=== PATIENT | male | born 1960 | race Caucasian/White ===

== ENCOUNTER 2016-11-27 09:56 | Emergency (ER) | payer BC, OTHER ==
[~2016-11-27] VITALS: Wt 88.5 kg
[~2016-11-27 09:56] MED LIST: ASPI-664 PO; ATOR80TA75 PO; BENA40TA41 PO; CARV6.2579 PO; LORA0.5T PO; TICA90TA PO; ZOLP10TA5 PO
[2016-11-27] MEDS ORDERED: CARV12.579 PO (10:38)
[2016-11-27] MEDS ORDERED: CARV6.2579 PO (10:38)
--- NOTE | 2016-11-27 10:49 | RADRPT ---
PROCEDURE: XR Chest. CLINICAL INDICATION: Chest pain TECHNIQUE: Single AP portable chest COMPARISON: 05/23/2016 FINDINGS: The cardiomediastinal silhouette is within normal limits..The lungs are clear though pleural effusio n or focal consolidation. No pneumothorax. The osseous structures and soft tissues are unremarkable. IMPRESSION: 1. No evidence for active cardiopulmonary disease. RPTAT:AAJJ Quang Wang Physician Date Time Electronically viewed and signed by Quang Wang Physician on 11/27/2016 10:49 MIRIAM/
[2016-11-27 10:57] LABS: BASOPHILS % 0.3 % (0.0-2.0); EOSINOPHILS # 0.1 10^3/ul (0.0-0.5); HEMATOCRIT 40.5 % (42.0-52.0); HEMOGLOBIN 13.9 g/dl (14.0-18.0); LYMPHOCYTES # 1.3 10^3/ul (0.8-2.9); LYMPHOCYTES % 22.2 % (15.0-51.0); MEAN CORPUSCULAR HEMOGLOBIN 30.5 pg (29.0-33.0); MEAN CORPUSCULAR HGB CONC 34.3 g/dl (32.0-37.0); MEAN PLATELET VOLUME 8.6 fl (7.4-10.4); MONOCYTE # 0.6 10^3/ul (0.3-0.9); MONOCYTES % 9.9 % (0.0-11.0); NEUTROPHIL # 3.8 10^3/ul (1.6-7.5); NEUTROPHILS % 66.6 % (39.0-77.0); PLATELET COUNT 237 10^3/UL (140-440); RED BLOOD COUNT 4.55 10^6/ul (4.70-6.10); RED CELL DISTRIBUTION WIDTH 13.5 % (11.5-14.5); UNCORRECTED WBC 5.8 10^3/ul (4.8-10.8); WHITE BLOOD COUNT 5.8 10^3/ul (4.8-10.8)
[2016-11-27] MEDS ORDERED: NITROGLYCERIN (SL) 0.4 MG TAB SL PRN (11:00)
[2016-11-27 11:04] LABS: CONDITION 1
[2016-11-27 11:15] LABS: ALBUMIN 4.1 g/dl (3.3-4.9); CHLORIDE 101 mmol/L (97-110); SODIUM 141 mmol/L (135-144)
[2016-11-27 11:16] LABS: POTASSIUM 4.7 mmol/L (3.5-5.1)
[2016-11-27 11:18] LABS: ALBUMIN/GLOBULIN RATIO 1.41; ALKALINE PHOSPHATASE 49 IU/L (42-121); ANION GAP 17 (8-16); ASPARTATE AMINO TRANSFERASE 35 IU/L (15-46); BILIRUBIN,INDIRECT 0.5 mg/dl (0-1.1); BILIRUBIN,TOTAL 0.5 mg/dl (0.2-1.3); BLOOD UREA NITROGEN 18 mg/dl (7-20); CARBON DIOXIDE 28 mmol/L (21-31); CREATININE 0.85 mg/dl (0.61-1.24); GLUCOSE 142 mg/dl (70-220)
[2016-11-27 11:19] LABS: ALANINE AMINOTRANSFERASE 65 IU/L (13-69); CALCIUM 9.4 mg/dl (8.4-10.2)
[2016-11-27 11:30] LABS: TROPONIN-I < 0.012 ng/ml (0.00-0.12)
[2016-11-27 11:33] LABS: INR 0.92; PROTIME 12.4 Sec (12.2-14.2)
[2016-11-27 11:42] LABS: PARTIAL THROMBOPLASTIN TIME 30.2 Sec (25.0-35.0)
--- NOTE | 2016-11-27 13:39 | ERD ---
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 No shortness of breath, nausea, vomiting or diaphoresis. Took 3 sublingual nitroglycerin with minimal relief. No abdominal pain or back pain. No headache or neck pain. No URI symptoms or cough. Denies leg pain or swelling. No fevers or chills. ROS All systems reviewed and are negative except as per history of present illness. Medications Home Meds Reported Medications Carvedilol* (Carvedilol*) 12.5 Mg Tablet, 12.5 MG PO BID, #60 TAB 11/27/16 Ticagrelor* (Brilinta*) 90 Mg Tablet, 90 MG PO Q12, TAB 05/04/16 Aspirin* (Aspirin* EC) 81 Mg Tablet.dr, 81 MG PO DAILY, TAB 05/04/16 Benazepril Hcl* (Benazepril Hcl*) 40 Mg Tablet, 40 MG PO DAILY, #30 TAB 05/04/16 Atorvastatin* (Atorvastatin*) 80 Mg Tablet, 80 MG PO QHS, #30 TAB 05/04/16 Discontinued Reported Medications Carvedilol* (Carvedilol*) 6.25 Mg Tablet, 6.25 MG PO BID, #60 TAB 11/27/16 Lorazepam* (Lorazepam*) 0.5 Mg Tablet, 0.5 MG PO HS Y for SLEEP, TAB 05/23/16 Discontinued Scripts Zolpidem Tartrate* (Zolpidem Tartrate*) 10 Mg Tablet, 10 MG PO QHS Y for INSOMNIA, #10 TAB Prov:KP BALDWIN MD 05/23/16 Allergies Allergies: Coded Allergies: No Known Allergy (Unverified , 11/27/16) PMhx/Soc Reviewed in chart. As per HPI. History of Surgery: Yes (STENT PLACEMENT IN [facility] 2004 & 2015) Anesthesia Reaction: No Hx Neurological Disorder: No Hx Respiratory Disorders: No Hx Cardiac Disorders: Yes (HTN, HDL, STEMI 05/22/16 W/ STENT PLACEMENT IN [facility]) Hx Psychiatric Problems: Yes (ANXIETY) Hx Miscellaneous Medical Probl: No Hx Alcohol Use: No (3 DRINKS/WEEK) Hx Substance Use: No Hx Tobacco Use: No Smoking Status: Never smoker FmHx Father: Coronary artery disease and CABG, diabetes. Physical Exam Vitals Vital Signs Date Time Temp Pulse Resp B/P Pulse Ox O2 Delivery O2 Flow Rate FiO2 11/27/16 10:08 98.0 71 18 116/71 98 11/27/16 10:05 Nasal Cannula 2 Physical Exam Const: Alert, anxious but in no acute distress. Head: Atraumatic Eyes: Normal Conjunctiva. Pupils equal reactive to light. Extraocular movements intact. ENT: Normal External Ears, Nose and Mouth. Neck: Full range of motion.. No JVD. Nontender. Resp: Clear to auscultation bilaterally Cardio: Regular rate and rhythm, no murmurs Abd: Soft, non tender, non distended. Normal bowel sounds Skin: No petechiae or rashes Back: No midline or flank tenderness Ext: No cyanosis, or edema Neur: Awake and alert. Cranial nerves II through XII are grossly intact. No focal deficit Psych: Appears mildly anxious but not depressed. Result Diagram: 11/27/16 1030 11/27/16 1030 Results 24 hrs Laboratory Tests Test 11/27/16 10:30 11/27/16 13:40 Activated Partial Thromboplast Time 30.2Sec Alanine Aminotransferase (ALT/SGPT) 65IU/L Albumin 4.1g/dl Albumin/Globulin Ratio 1.41 Alkaline Phosphatase 49IU/L Anion Gap 17 Aspartate Amino Transf (AST/SGOT) 35IU/L Basophils # 0.010^3/ul Basophils % 0.3% Blood Urea Nitrogen 18mg/dl Calcium Level 9.4mg/dl Carbon Dioxide Level 28mmol/L Chloride Level 101mmol/L Creatinine 0.85mg/dl Direct Bilirubin 0.00mg/dl Eosinophils # 0.110^3/ul Eosinophils % 1.0% Globulin 2.90g/dl Glucose Level 142mg/dl Hematocrit 40.5% Hemoglobin 13.9g/dl INR International Normalized Ratio 0.92 Indirect Bilirubin 0.5mg/dl Lymphocytes # 1.310^3/ul Lymphocytes % 22.2% Mean Corpuscular Hemoglobin 30.5pg Mean Corpuscular Hemoglobin Concent 34.3g/dl Mean Corpuscular Volume 89.0fl Mean Platelet Volume 8.6fl Monocytes # 0.610^3/ul Monocytes % 9.9% Neutrophils # 3.810^3/ul Neutrophils % 66.6% Nucleated Red Blood Cells # 0.010^3/ul Nucleated Red Blood Cells % 0.0/100WBC Platelet Count 45380^3/UL Potassium Level 4.7mmol/L Prothrombin Time 12.4Sec Prothrombin Time Ratio 1.0 Red Blood Count 4.5510^6/ul Red Cell Distribution Width 13.5% Sodium Level 141mmol/L Total Bilirubin 0.5mg/dl Total Protein 7.0g/dl Troponin I < 0.012ng/ml < 0.012ng/ml White Blood Count 5.810^3/ul Current Medications Medications (Trade) Dose Ordered Sig/Armando Route PRN Reason Start Time Stop Time Status Last Admin Dose Admin Nitroglycerin (Nitroglycerin (Sl Tab) 0.4 Mg) 1 tab Q5M UP TO 3 DOSES PRN SL CHEST PAIN 11/27/16 11:00 RHYTHM STRIP INTERPRETATION: Time: 10:08. Sinus rhythm. Ventricular rate 72. No ectopy. Indication: Chest pain. EKG: Time: 10:01. Sinus rhythm. Ventricular rate 69, normal OK and QRS intervals. No acute ST segment elevation or depression. No axis deviation or ectopy. EP Impression: Normal EKG EKG: Time: 13:30. Sinus rhythm. Ventricular rate 58, normal OK and QRS intervals. No acute ST segment elevation or depression. No axis deviation or ectopy. EP Impression: Normal EKG IMAGING: PROCEDURE: XR Chest. CLINICAL INDICATION: Chest pain TECHNIQUE: Single AP portable chest COMPARISON: 05/23/2016 FINDINGS: The cardiomediastinal silhouette is within normal limits..The lungs are clear though pleural effusion or focal consolidation. No pneumothorax. The osseous structures and soft tissues are unremarkable. IMPRESSION: 1. No evidence for active cardiopulmonary disease. RPTAT:AAJJ J Port, Physician Date Time Electronically viewed and signed by Physician Yaya on 11/27/2016 10:49 MIRIAM/ Procedures/MDM DOCUMENTS REVIEWED: ED nurse, prior ED, prior records REEXAMINATION/REEVALUATION: Time: 11:00. Vital signs stable. Sinus rhythm without ectopy. No chest pain. REEXAMINATION/REEVALUATION: Time: 12:00. Doing well. Asymptomatic. No chest pain or palpitations. REEXAMINATION/REEVALUATION: Time: 13:00. Vital signs stable. Asymptomatic. Sinus rhythm without ectopy. MEDICAL DECISION MAKIN-year-old male with history of coronary artery disease status post PCI to the right coronary artery approximately 10 years ago and again in March 2016 for STEMI, hypertension and dyslipidemia ambulatory to the ED complaining of a several hour history of unprovoked, vague, mild, 3/10, nonradiating left upper chest pressure which resolved. Serial ECGs and troponins are negative. Chest x-ray negative for pneumonia, pneumothorax or heart failure. Pulmonary embolism is unlikely. I had extensive conversation with the patient has regarding the risks and benefits of admission versus discharge and outpatient therapy. Although possible, it does not seem that the etiology of his symptoms are due to cardiac ischemia. Other etiologies such as GERD/gastritis or anxiety are considered. Patient agrees with plan of discharge with return to ED should symptoms recur and urgent outpatient therapy tomorrow with his cold strip roller. CALLS/CONSULTS: Time 11:00, Dr. Hung, Discussed with Dr. Saha; does not know the patient but will try to contact Dr. Hung. Counseled patient and family regarding diagnostic workup, diagnosis and need for mandatory followup with Dr Hung tomorrow. Understands to return to ED if symptoms recur, worsen or any other concerns. Departure Diagnosis: Primary Impression: Chest pain Chest pain type: unspecified Qualified Code: R07.9 - Chest pain, unspecified type Condition: SIMEON Cheng MD Nov 27, 2016 13:39
[2016-11-27 14:50] VITALS: BP 146/88; PULSE 67; RESP 18; TEMP 97.9
== END 2016-11-27 14:50 | disposition home or self-care (01) ==
LOC: E/R 09:56
DX: R07.89 Other chest pain (principal); I25.10 Atherosclerotic heart disease of native coronary artery without angina pectoris; I10 Essential (primary) hypertension; Z79.82 Long term (current) use of aspirin; Z95.5 Presence of coronary angioplasty implant and graft
CPT/HCPCS: 36415; 71010; 80053; 84484; 85025; 85610; 85730; 93005